=== PATIENT | male | born 1965 | race Hispanic/Latino ===

== ENCOUNTER 2018-02-12 19:03 | Emergency (ER) | payer OTHER, SELFPAY ==
--- NOTE | 2018-02-12 19:54 | RAD ---
RIGHT SHOULDER THREE VIEWS: 02/12/18 HISTORY: Shoulder injury. There is no signs of fracture or dislocation. IMPRESSION: No acute injury. POS: [facility]
[2018-02-12] MEDS ORDERED: Ibuprofen 800 MG TAB ONE (20:10)
[2018-02-12] MEDS ORDERED: Fluconazole 100 MG TAB ONE (20:10)
--- NOTE | 2018-02-12 22:55 | RAD ---
RIGHT CLAVICLE TWO VIEWS: 02/12/18 HISTORY: Injury. There are no signs of fracture or dislocation. IMPRESSION: Negative right clavicle. POS: [facility]
== END 2018-02-12 20:19 | disposition home or self-care (01) ==
LOC: MADERS 19:03
DX: S43.51XA Sprain of right acromioclavicular joint, initial encounter (principal); V47.9XXA Unspecified car occupant injured in collision with fixed or stationary object in traffic accident, initial encounter